=== PATIENT | male | born 1985 | race Caucasian/White ===

== ENCOUNTER → 2019-10-29 10:37 | Outpatient (BNVA) | payer BC, SELFPAY | PROVIDERS: Visit Provider Nurse Practitioner Family | DX: M25.662 Stiffness of left knee, not elsewhere classified (principal) | CPT/HCPCS: 73562 ==

== ENCOUNTER 2020-01-18 06:00 | Outpatient (RCR) | payer BC, SELFPAY | END 2020-02-05 23:59 | disposition home or self-care (01) | LOC: GPT 06:00 | PROVIDERS: PCP Nurse Practitioner Family; Visit Provider Nurse Practitioner Family | DX: M25.562 Pain in left knee (principal) | CPT/HCPCS: 97032; 97110; 97112; 97116; 97161; 97530 ==

== ENCOUNTER 2020-02-19 02:03 | Outpatient (RCR) | payer BC, SELFPAY | END 2020-03-07 23:59 | disposition home or self-care (01) | LOC: GPT 02:03 | PROVIDERS: PCP Nurse Practitioner Family; Visit Provider Nurse Practitioner Family | DX: M25.562 Pain in left knee (principal) | CPT/HCPCS: 97032; 97110; 97112; 97530 ==

== ENCOUNTER 2020-03-24 10:05 | Outpatient (CLI) | payer BC, SELFPAY ==
--- NOTE | 2020-03-24 10:57 | MR_ITS ---
WS: [id number] MRI LEFT KNEE NONCONTRAST TECHNIQUE: Axial PD, coronal PD fat sat, coronal PD, sagittal PD, and sagittal PD fat-sat images obta ined. CLINICAL INFORMATION: PAIN IN LEFT KNEE COMPARISON: None. FINDINGS: Distal quadriceps and patella tendons are intact. Hypertrophic patella. Normal ACL and PCL. Diffuse s ignal abnormality involving the lateral meniscus with complex tear involving the anterior horn extend ing to the meniscal root. Tiny anterior horn parameniscal cyst. Normal medial and lateral collateral ligaments. Mild chondromalacia patella worse involving the later al patella facet. No subchondral edema. Normal medial and lateral collateral ligaments. MR/MR knee LT wo con* [id number] IMPRESSION: 1. Normal anterior and posterior cruciate ligaments. 2. Diffuse abnormal signal abnormality involving the lateral meniscus with acu te appearing tear involving the anterior horn extending to the meniscal root. S mall anterior horn parameniscal cyst. 3. Medial meniscus is normal in appearance. 4. Mild chondromalacia patella.
== END 2020-03-24 10:06 | disposition home or self-care (01) ==
LOC: RADWPI 10:10
PROVIDERS: PCP Nurse Practitioner Family; Visit Provider Nurse Practitioner Family
DX: M25.562 Pain in left knee (principal); M22.42 Chondromalacia patellae, left knee
CPT/HCPCS: 73721

== ENCOUNTER → 2021-01-07 11:09 | Outpatient (BNVA) | payer BC, SELFPAY | PROVIDERS: PCP Nurse Practitioner Family; Visit Provider Family Medicine | DX: E29.1 Testicular hypofunction (principal); E66.9 Obesity, unspecified; Z68.36 Body mass index [BMI] 36.0-36.9, adult | CPT/HCPCS: 36415; 84403 ==

== ENCOUNTER → 2022-06-23 16:46 | Outpatient (BNVA) | payer BC, SELFPAY | PROVIDERS: PCP Nurse Practitioner Family; Visit Provider Nurse Practitioner Family | DX: R00.0 Tachycardia, unspecified (principal); Z23 Encounter for immunization | CPT/HCPCS: 80053; 80061; 84443; 85025 ==

== ENCOUNTER → 2023-01-14 08:11 | Outpatient (BNVA) | payer BC, SELFPAY | PROVIDERS: PCP Nurse Practitioner Family; Visit Provider Nurse Practitioner Family | DX: R79.89 Other specified abnormal findings of blood chemistry (principal); Z68.38 Body mass index [BMI] 38.0-38.9, adult | CPT/HCPCS: 84403 ==

== ENCOUNTER → 2023-09-19 13:00 | Outpatient (BNVA) | payer BC, SELFPAY | PROVIDERS: PCP Nurse Practitioner Family; Visit Provider Family Medicine | DX: R79.89 Other specified abnormal findings of blood chemistry (principal); E11.9 Type 2 diabetes mellitus without complications; Z83.3 Family history of diabetes mellitus | CPT/HCPCS: 83036; 84403 ==

== ENCOUNTER → 2023-12-21 14:57 | Outpatient (BNVA) | payer BC, SELFPAY | PROVIDERS: PCP Nurse Practitioner Family; Visit Provider Nurse Practitioner Family | DX: J39.2 Other diseases of pharynx (principal) | CPT/HCPCS: 87070; 87071; 87880 ==

== ENCOUNTER → 2024-03-23 12:07 | Outpatient (BNVA) | payer BC, SELFPAY | PROVIDERS: PCP Nurse Practitioner Family; Visit Provider Nurse Practitioner Family | DX: R31.9 Hematuria, unspecified (principal) | CPT/HCPCS: 81000 ==